=== PATIENT | male | born 1985 | race African-American/Black ===

== ENCOUNTER 2017-05-12 14:32 | Emergency (ER) | payer SELFPAY ==
[~2017-05-12] VITALS: Ht 190.5 cm; Wt 100.0 kg
[2017-05-12] MEDS ORDERED: KETOROLAC 30MG/ML VIAL IV STA (20:55)
[2017-05-12] MEDS ORDERED: SODIUM CHLORIDE 0.9% 1,000 ML IV ONE (20:55)
[2017-05-12] MEDS ORDERED: ONDANSETRON HCL 4MG/2ML VIAL IV STA (20:55)
[2017-05-12 21:41] LABS: HEMATOCRIT. 52.5 % (42.0-52.0); HEMOGLOBIN. 17.6 g/dL (14.0-18.0); MEAN CORPUSCULAR VOLUME 83.3 fL (80.0-94.0); MEAN PLATELET VOLUME 9.2 fl (7.4-10.4); PLATELET 291 x1000/uL (130-400); RED BLOOD CELL COUNT 6.31 mill/uL (4.7-6.1); RED CELL DISTRIBUTION WIDTH 13.9 % (11.6-14.6)
[2017-05-12 21:43] LABS: CLARITY URINE CLEAR (CLEAR); COLOR URINE ORANGE (YELLOW); KETONES URINE 1+ (NEGATIVE); LEUKOCYTE ESTERASE URINE TRACE (NEGATIVE); NITRITE URINE NEGATIVE (NEGATIVE); OCCULT BLOOD URINE TRACE (NEGATIVE); PROTEIN URINE 3+ (NEGATIVE)
[2017-05-12 21:46] LABS: PROTHROMBIN TIME 10.3 sec (9.4-11.6)
[2017-05-12 21:53] LABS: CHLORIDE 99 mEq/L (98-107); ETHANOL BLOOD < 10 mg/dL
[2017-05-12 22:13] LABS: PLATELET ESTIMATE NORMAL
[2017-05-13 02:00] VITALS: BP 128/77
== END 2017-05-13 02:00 | disposition home or self-care (01) ==
LOC: EDSEX 14:32 → ER 17:23
DX: R10.11 Right upper quadrant pain (principal); R11.2 Nausea with vomiting, unspecified; K83.9 Disease of biliary tract, unspecified; R03.0 Elevated blood-pressure reading, without diagnosis of hypertension; F12.90 Cannabis use, unspecified, uncomplicated; F17.210 Nicotine dependence, cigarettes, uncomplicated; Z87.19 Personal history of other diseases of the digestive system
CPT/HCPCS: 36415; 76700; 80053; 81003; 83690; 85025; 85610; 96361; 96374; 96375; 99285; G0482; J1885; J2405; J7030; J7040; Z7610

== ENCOUNTER 2017-05-15 09:17 | Emergency (ER) | payer OTHER ==
[~2017-05-15] VITALS: Ht 190.5 cm; Wt 95.0 kg
[2017-05-15] MEDS ORDERED: ACETAMINOPHEN WITH CODEINE 300/30MG TABLET PO ONE (11:00)
[2017-05-15 12:15] VITALS: BP 132/85
== END 2017-05-15 12:16 | disposition home or self-care (01) ==
LOC: ER 10:25
DX: K80.50 Calculus of bile duct without cholangitis or cholecystitis without obstruction (principal); F12.10 Cannabis abuse, uncomplicated; F17.200 Nicotine dependence, unspecified, uncomplicated
CPT/HCPCS: 99284; Z7610